=== PATIENT | male | born 1950 | race Caucasian/White ===

== ENCOUNTER → 2017-02-11 | Outpatient (CLI) | payer OTHER ==
[~2017-02-11] MED LIST: AMLO-110 PO; CLON0.5T3 PO; MULT-506 PO; OMEG10007 PO; OMEP40CA41 PO
[2017-02-11 15:38] LABS: BASO % 0.9 %; BASO ABS # 0.05 K/uL (0-0.2); COMPLETE YES; EOS % 3.5 %; IG% 0.2 %; LYMPH % 42.4 %; MEAN CELL VOLUME 94.1 fL (80-100); MEAN CORPUSCULAR HEMOGLOBIN 32.5 pg (25-34); MEAN CORPUSCULAR HGB CONC 34.6 g/dl (32-36); MONO % 7.7 %; NEUT % 45.3 %; PLATELET COUNT 238 K/uL (130-400); RED BLOOD COUNT 4.89 M/uL (4.7-6.1); WHITE BLOOD COUNT 5.43 K/uL (4.8-10.8)
[2017-02-11 16:08] LABS: BLOOD UREA NITROGEN 13 mg/dl (7-18); BUN/CREATININE RATIO 14.3 (10-20); CALCIUM 9.3 mg/dl (8.5-10.1); CARBON DIOXIDE 25 mmol/L (21-32); CHLORIDE 107 mmol/L (98-107); CREATININE 0.93 mg/dl (0.60-1.40); GLUCOSE 99 mg/dl (70-99); POTASSIUM 4.1 mmol/L (3.5-5.1); SODIUM 140 mmol/L (136-145)
== END | disposition home or self-care (01) ==
LOC: C.CPL 14:31
PROVIDERS: ATTEND Orthopaedic Surgery
DX: Z01.812 Encounter for preprocedural laboratory examination (principal); Z01.810 Encounter for preprocedural cardiovascular examination; S46.119A Strain of muscle, fascia and tendon of long head of biceps, unspecified arm, initial encounter; X58.XXXA Exposure to other specified factors, initial encounter

== ENCOUNTER → 2017-02-25 | Day surgery (SDC) | payer OTHER ==
[2017-02-10 09:08] VITALS: Ht 182.9 cm; Wt 81.8 kg
[~2017-02-25] VITALS: Ht 182.9 cm; Wt 81.8 kg
[~2017-02-25] MED LIST changes: +ATROPINE SULFATE 0.1 MG/ML 5ML SYR IV PRN; +BUPIVACAINE/EPINEPHRINE 0.25% 1:200,000 30 ML VIAL ONE; +CEFAZOLIN 2000 MG/60 ML D5W IV SCH; +DEXAMETHASONE SOD INJ 4 MG/ML VIAL ONE; +EpHEDrine SULFATE INJ 50 MG/ML AMP IV PRN; +EpHEDrine SULFATE INJ 50 MG/ML AMP ONE; +EpINEphrine INJ 1MG/ML AMP 1 MG/ML AMP ONE; +FENTANYL CITRATE INJ 50 MCG/1 ML 2 ML VIAL IV PRN; +FENTANYL CITRATE INJ 50 MCG/1 ML 2 ML VIAL ONE; +HYDROmorphone INJ 1 MG/ML SYR IV PRN; +KETO10TA PO; +LACTATED RINGER'S 1000ML 1,000 ML IV SCH; +LIDOCAINE HCL 2% 2 ML VIAL (20MG/ML) ONE; +MIDAZOLAM HCL 1 MG/ML 2ML VIAL ONE; +ONDANSETRON INJ 2 MG/ML 2 ML VIAL IV PRN; +ONDANSETRON INJ 2 MG/ML 2 ML VIAL ONE; +OXYC-57 PO; +OXYCODONE/ACETAMINOPHEN 5-325 TAB PO PRN; +PROPOFOL IV EMULSION 10 MG/ML 20 ML VIAL IV ONE; +ROPIVACAINE 0.5% 5 MG/ML 30 ML VIAL ONE; +SODIUM CHLORIDE 0.9% 1000ML 1,000 ML IV SCH; +SUCCINYLCHOLINE CHLORIDE 20 MG/ML 10 ML VIAL IV ONE
--- NOTE | 2017-02-25 09:56 | History & Physical Bridge - [place] ---
H&P Re-Evaluation Bridge Note: I have examined the patient, reviewed the History & Physical and in the interval since the performance of the History & Physical I have noted the following changes of clinical significance: No changes noted
--- NOTE | 2017-02-25 11:50 | Discharge Instructions-SurgCtr ---
Discharge Instructions Date of Service Feb 25, 2017. Visit Reason for Visit: Right Subluxation Of Long Head Of Biceps Discharge Discharge Diagnosis / Problem: SAME ABOVE Discharge Goals Goal(s): Decrease discomfort, Improve function Activity Recommendations Activity Limitations: as noted below Lifting Limitations: until after follow-up appointment Exercise/Sports Limitations: until after follow-up appointment Shower/Bathe: tomorrow Anesthesia . Post Anesthesia Instructions: If you have had General Anesthesia or IV Sedation: * Do not drive today. * Resume driving when surgeon permits. * Do not make important decisions or sign legal documents today. * Call surgeon for: 1. Temperature elevations greater than 101 degrees F. 2. Uncontrollable pain. 3. Excessive bleeding. 4. Persistent nausea and vomiting. 5. Medication intolerance (nausea, vomiting or rash). * For nausea and vomiting use only clear liquids such as: tea, soda, bouillon until nausea subsides, then gradually increase diet as tolerated. * If you have any concerns or questions, call your surgeon's office. If physician is unavailable and it is an emergency, call 911 or go to the nearest emergency room. . Instructions / Follow-Up Instructions / Follow-Up MEDICATIONS: * Resume previous medications unless instructed otherwise by your surgeon. * Always take pain medication on a full stomach or with food to avoid upset stomach. * Do not drink alcohol or drive while taking narcotics. * Ibuprofen or Tylenol may be taken if narcotic not needed. SPECIAL CARE INSTRUCTIONS: __ None _X_ Keep extremity elevated and iced x 48 hours; apply ice 20-30 minutes 8-10 times/day. May remove at night. _X_ Sling __24 hrs/day __ Remove at night __ Shoulder Immobilizer __ 24 hrs/day __ Remove at night _X_ Dressing __ Maintain until seen in office, may shower with plastic over site X__ Remove dressings in 24-48 hours and then may shower _X_ Cover incisions with band-aids after showering __ Do not remove steri-strips CONTINUE TO WEAR ARM SLING FOR COMFORT FOR THE NEXT 24-48 HOURS Call physician if chills or temperature rises above 102 degrees or pain unrelieved by prescribed pain medications at . . Diet Recommendations Home Diet: resume previous diet Procedures Procedures Performed: Right Shoulder Arthroscopy, Open Biceps Tenotomy Pending Studies Studies pending at discharge: no Medical Emergencies . Who to Call and When: Medical Emergencies: If at any time you feel your situation is an emergency, please call 911 immediately. . Non-Emergent Contact Non-Emergency issues call your: Primary Care Provider . . "Provider Documentation" section prepared by Jeb Cunha. .
--- NOTE | 2017-02-25 12:21 | Anesthesia Progress Nt - [facility] ---
Anesthesia Post Op Note Date & Time Feb 25, 2017 at 12:21 Vital Signs Pain Intensity: 0 Vital Signs Past 12 Hours Date Time Temp Pulse Resp B/P (MAP) Pulse Ox O2 Delivery O2 Flow Rate FiO2 02/25/17 12:14 43 14 02/25/17 12:14 42 14 95 02/25/17 12:13 42 19 95 02/25/17 12:13 43 19 02/25/17 12:12 41 15 95 02/25/17 12:12 42 15 02/25/17 12:11 151/89 02/25/17 12:07 42 14 98 02/25/17 12:07 42 14 02/25/17 12:06 158/75 02/25/17 12:02 42 15 99 02/25/17 12:02 42 15 02/25/17 12:01 146/77 02/25/17 12:00 43 15 02/25/17 12:00 45 15 99 02/25/17 11:59 43 16 02/25/17 11:59 44 16 99 02/25/17 11:56 165/77 02/25/17 11:54 42 15 02/25/17 11:54 43 15 99 02/25/17 11:53 42 14 02/25/17 11:53 43 14 99 02/25/17 11:51 149/79 02/25/17 11:48 41 13 02/25/17 11:48 42 13 100 02/25/17 11:47 173/80 02/25/17 11:46 36.3 41 16 173/80 100 Mask 8 02/25/17 10:47 0 02/25/17 10:46 138/78 02/25/17 10:42 39 02/25/17 10:42 39 16 99 02/25/17 10:41 39 02/25/17 10:41 39 17 142/76 99 02/25/17 10:38 149/96 02/25/17 10:36 40 02/25/17 10:36 39 0 98 02/25/17 10:31 43 0 98 02/25/17 10:31 43 02/25/17 10:26 45 02/25/17 10:06 145/78 (100) 02/25/17 10:05 145/78 02/25/17 10:01 13 02/25/17 10:01 41 13 02/25/17 09:56 42 12 02/25/17 09:56 12 02/25/17 09:51 39 14 02/25/17 09:51 14 02/25/17 09:46 10 02/25/17 09:46 41 10 02/25/17 09:41 41 8 02/25/17 09:41 8 02/25/17 09:36 40 02/25/17 09:31 39 02/25/17 09:26 41 02/25/17 09:21 40 02/25/17 09:16 39 02/25/17 09:11 40 02/25/17 09:06 42 02/25/17 09:01 42 02/25/17 08:27 36.6 47 18 151/90 (110) 96 Room Air Notes Mental Status: alert / awake / arousable, participated in evaluation Pt Amnestic to Procedure: Yes Nausea / Vomiting: adequately controlled Pain: adequately controlled Airway Patency, RR, SpO2: stable & adequate BP & HR: stable & adequate Hydration State: stable & adequate Anesthetic Complications: no major complications apparent
[2017-02-25 13:43] VITALS: BP 143/73; PULSE 41; TEMP 36.4; O2SAT 97
--- NOTE | 2017-02-25 14:33 | [facility] Post Operative Brief Note ---
Immediate Operative Summary Operative Date Feb 25, 2017. Pre-Operative Diagnosis Right subluxated bicep tendon Post-Operative Diagnosis Same as preop Procedure(s) Performed Right Shoulder Arthroscopy, Open Biceps Tenotomy Surgeon Dr. Jones Hearing Aid Technician Surgeon(s) Jeb Cunha PA-C Estimated Blood Loss 5 mL Findings as above Specimens None Complication(s) None Disposition Recovery Room / PACU
--- NOTE | 2017-02-25 15:04 | OPERATIVE REPORT ---
DATE OF OPERATION: 02/25/2017 PREOPERATIVE DIAGNOSIS: Medially subluxated biceps tendon of the right shoulder. POSTOPERATIVE DIAGNOSIS: Same. PROCEDURE: Right shoulder diagnostic arthroscopy with limited debridement and biceps tenotomy. SURGEON: Dr. Jeb Jones. CREDIT RISK ANALYTICS MANAGER: Jeb Cunha PA-C, whose assistance was necessary for positioning of the arm and helping with instrumentation. ANESTHESIA: General with a right interscalene nerve block. COMPLICATIONS: None. CONDITION: Stable to PACU. INDICATIONS: Jovanny is a pleasant 66-year-old male who underwent a right shoulder rotator cuff repair and superior labral repair by Dr. Boone 4 years ago. He initially did well, but now has been having pain and weakness, mostly in the anterior aspect of his shoulder. MRI showed a medially subluxated biceps tendon. He elected to proceed with arthroscopy. DESCRIPTION OF PROCEDURE: On 02/25/2017, he arrived at [facility] for the above procedure. He was seen in the preoperative holding area and the operative extremity was identified and signed. He was given a preoperative antibiotic and a right interscalene nerve block. He was taken back to the operating room, laid on the table in supine position and put under general anesthesia. He was then put into the beachchair position. The right shoulder was prepped and draped in sterile fashion. Time-out was done and the patient and operative extremity was properly identified. A scope was introduced in the posterior portal. Diagnostic arthroscopy showed very minimal grade-2 chondral changes off the humeral head. There was no cartilage change on the glenoid. There was some fraying of the anterior labrum. The superior labrum had been repaired. The biceps tendon was subluxated medially and anterior to the subscapularis. The supraspinatus was intact and well healed. An anterior portal was made. A shaver was used to do a limited debridement of the intraarticular structures and the biceps tendon was arthroscopically tenotomized. The scope was then put into the subacromial space. A lateral portal was made. A shaver was used to do a limited debridement of the subacromial and subdeltoid bursa. I found no additional pathology in the subacromial space. Arthroscopic instruments were removed from the shoulder. Attention was turned to an open biceps tenodesis. A small incision was made over the inferior border of the pec major. Dissection was taken down through the fascia and long head of biceps tendon was easily identified. Significant time was spent trying to pull the long head of the biceps tendon out of the bicipital groove. I was unable to pull the biceps out of the groove. I did not want to cut the biceps tendon. It appeared to be a self tenodesis. I decided to irrigate the wound and then closed the skin with 3-0 Vicryl and a 3-0 Monocryl suture. Steri-strips were placed. Portal sites were closed with 3-0 nylon. He was then placed in a soft dressing and a regular arm sling. He was then extubated, transferred to a [facility] and taken to the postanesthesia care unit in stable condition. He tolerated the procedure well. I attest to the content of the Intraoperative Record and any orders documented therein. Any exception s are noted below.
== END | disposition home or self-care (01) ==
LOC: X.SURG 08:07
PROVIDERS: ATTEND Orthopaedic Surgery
DX: S43.491A Other sprain of right shoulder joint, initial encounter (principal); X58.XXXA Exposure to other specified factors, initial encounter; F32.9 Major depressive disorder, single episode, unspecified; I10 Essential (primary) hypertension

== ENCOUNTER → 2017-09-03 | Outpatient (CLI) | payer OTHER ==
[~2017-09-03] MED LIST changes: -ATROPINE SULFATE 0.1 MG/ML 5ML SYR IV PRN; -BUPIVACAINE/EPINEPHRINE 0.25% 1:200,000 30 ML VIAL ONE; -CEFAZOLIN 2000 MG/60 ML D5W IV SCH; -DEXAMETHASONE SOD INJ 4 MG/ML VIAL ONE; -EpHEDrine SULFATE INJ 50 MG/ML AMP IV PRN; -EpHEDrine SULFATE INJ 50 MG/ML AMP ONE; -EpINEphrine INJ 1MG/ML AMP 1 MG/ML AMP ONE; -FENTANYL CITRATE INJ 50 MCG/1 ML 2 ML VIAL IV PRN; -FENTANYL CITRATE INJ 50 MCG/1 ML 2 ML VIAL ONE; +GADAVIST IV PRN; -HYDROmorphone INJ 1 MG/ML SYR IV PRN; -KETO10TA PO; -LACTATED RINGER'S 1000ML 1,000 ML IV SCH; -LIDOCAINE HCL 2% 2 ML VIAL (20MG/ML) ONE; -MIDAZOLAM HCL 1 MG/ML 2ML VIAL ONE; -ONDANSETRON INJ 2 MG/ML 2 ML VIAL IV PRN; -ONDANSETRON INJ 2 MG/ML 2 ML VIAL ONE; -OXYC-57 PO; -OXYCODONE/ACETAMINOPHEN 5-325 TAB PO PRN; -PROPOFOL IV EMULSION 10 MG/ML 20 ML VIAL IV ONE; -ROPIVACAINE 0.5% 5 MG/ML 30 ML VIAL ONE; -SODIUM CHLORIDE 0.9% 1000ML 1,000 ML IV SCH; -SUCCINYLCHOLINE CHLORIDE 20 MG/ML 10 ML VIAL IV ONE
--- NOTE | 2017-09-03 14:13 | DIAGNOSTIC IMAGING REPORT ---
Brain MRI WITH AND WITHOUT CONTRAST HISTORY: R25.9 Resting tremor R29.898 Rigidity right sided tremor, stiffnes TECHNIQUE: Multiplanar multisequence MRI of the brain was performed both before and after the intravenous administration of contrast. COMPARISON STUDY: Head CT 05/18/2010. FINDINGS: There is no mass, hematoma, midline shift, or acute infarct. Moderate nodular mucosal thickening within the floors of the maxillary sinuses. Mild mucosal thickening throughout the remaining paranasal sinuses. The mastoid air cells are clear. The ventricles and sulci are within normal limits. Scattered foci of T2 hyperintensity seen within the periventricular and subcortical white matter are nonspecific but suggestive of mild microvascular ischemic changes. The major vascular flow voids at the skull base are well-maintained. No abnormal enhancement. IMPRESSION: 1. No acute intracranial abnormality. Scattered foci of T2 hyperintensity seen within the periventricular and subcortical white matter are nonspecific but favor mild microvascular ischemic change. 2.Mild to moderate mucosal thickening within the paranasal sinuses. Electronically signed by: Bob Voss M.D. 09/03/2017 2:12 PM Dictated Date/Time: 09/03/2017 2:01 PM
== END | disposition home or self-care (01) ==
LOC: C.MRI 12:42
PROVIDERS: ATTEND Psychiatry & Neurology Neurology
DX: R29.898 Other symptoms and signs involving the musculoskeletal system (principal); R25.9 Unspecified abnormal involuntary movements